=== PATIENT | male | born 1990 | race Hispanic/Latino ===

== ENCOUNTER 2017-09-23 01:35 | Emergency (ER) | payer OTHER ==
[2017-09-23 02:04] VITALS: BMI 26.2
[2017-09-23 02:08] VITALS: RESP 16
[2017-09-23] MEDS ORDERED: Lidocaine 2% w Epi 1:100,000 Inj IJ ONE ×2 (02:18→02:25)
--- NOTE | 2017-09-23 02:27 | ED PDOC ---
HPI: Head Injury Time Seen by Provider: 09/23/17 02:25 Chief Complaint (Nursing): Abnormal Skin Integrity Chief Complaint (Provider): head injury History Per: Patient (26 y/o male here for evaluation of head injury today. Noted to have tripped and fallen today after drinking etoh. Patient denies any pain. Head laceration noted posterior scalp. Tetanus >7 years ago.) Past Medical History Reviewed: Historical Data, Nursing Documentation, Vital Signs Vital Signs: Last Vital Signs Temp 97.4 F L 09/23/17 02:04 Pulse 80 09/23/17 02:04 Resp 16 09/23/17 02:04 BP 117/63 09/23/17 02:04 Pulse Ox 100 09/23/17 02:04 - Family History Family History: States: No Known Family Hx - Allergies Allergies/Adverse Reactions: Allergies Allergy/AdvReac Type Severity Reaction Status Date / Time No Known Allergies Allergy Verified 09/23/17 02:04 Review of Systems ROS Statement: Except As Marked, All Systems Reviewed And Found Negative Neurological: Positive for: Other (head injury) Physical Exam - Reviewed Nursing Documentation Reviewed: Yes Vital Signs Reviewed: Yes - Physical Exam Appears: Positive for: Well, Non-toxic, No Acute Distress Head Exam: Positive for: NORMAL INSPECTION, NORMOCEPHALIC. Negative for: ATRAUMATIC (2.5 cm laceration posterior scalp.) Skin: Positive for: Normal Color, Warm, DRY Eye Exam: Positive for: EOMI, Normal appearance, PERRL ENT: Positive for: Normal ENT Inspection Neck: Positive for: Normal, Painless ROM Cardiovascular/Chest: Positive for: Regular Rate, Rhythm Respiratory: Positive for: CNT, Normal Breath Sounds Gastrointestinal/Abdominal: Positive for: Normal Exam, Bowel Sounds, Soft Back: Positive for: Normal Inspection Extremity: Positive for: Normal ROM Neurologic/Psych: Positive for: Alert, Oriented - ECG O2 Sat by Pulse Oximetry: 100 - Progress ED Course And Treament: Tdap 0.5 ml IM x [address]: nad CT C spine: no acute fx Disposition - Clinical Impression Clinical Impression: Laceration of head - Patient ED Disposition Is Patient to be Admitted: No - Disposition Disposition: Routine/Home Disposition Time: 05:08 Condition: FAIR Additional Instructions: F/U WITH PMD/ED/URGENT IN 7 TO 10 DAYS FOR REMOVAL OF SUTURES Instructions: Head Injury (ED), Staple Care (ED) Forms: [employer] (Hebrew) Procedure: Wound Repair - Time Out Time Out: Site verified - Consent Obtained Consent obtained: Verbal - Performed by Performed by: Mid-level Provider - Indications Indication(s):: Laceration - Location Location:: Scalp Shape:: Linear Dimensions Length cm: 2.0 cm Depth:: Epidermis - Anesthetic Technique Anesthetic Technique: Local Local/Regional Anesthetic:: Lidocaine 2% w/epi - Irrigated Irrigated with ml of normal saline: 150ml - Complexity Complexity:: Simple (one layer) - Wound repair method Sutures:: Technique (four taryn placed in wound) - Patient tolerated procedure Patient Tolerated Procedure:: Well
[2017-09-23 05:16] VITALS: BP 118/72; PULSE 78; TEMP 98.4; O2SAT 98
--- NOTE | 2017-09-23 09:57 | CT ---
PROCEDURE: CT HEAD WITHOUT CONTRAST. HISTORY: head injury/etoh COMPARISON: None available. TECHNIQUE: Axial computed tomography images were obtained through the head/brain without intravenous contrast. Radiation dose: Total exam DLP = 888.89 mGy-cm. This CT exam was performed using one or more of the following dose reduction techniques: Automated exposure control, adjustment of the mA and/or kV according to patient size, and/or use of iterative reconstruction technique. FINDINGS: HEMORRHAGE: No intracranial hemorrhage. BRAIN: No mass effect or edema. No atrophy or chronic microvascular ischemic changes.. There is a tiny (approximately 5 mm x 1.8 mm) elliptical shaped density seen along the anterior aspect of the interhemispheric fissure which is nonspecific though not felt to represent a discrete hemorrhage. The possibility of a small meningioma or possibly dural-based microcalcification not excluded. Follow-up CT scan at interval recommended. VENTRICLES: Unremarkable. No hydrocephalus. CALVARIUM: Unremarkable. There may be some minimal right occipito parietal scalp swelling PARANASAL SINUSES: Unremarkable as visualized. No significant inflammatory changes. MASTOID AIR CELLS: Unremarkable as visualized. No inflammatory changes. OTHER FINDINGS: None. IMPRESSION: No acute intracranial hemorrhage. There is a tiny elliptical shaped density seen along the anterior aspect of the interhemispheric fissure which is nonspecific though not felt to represent a discrete hemorrhage. The possibility of a small meningioma or possibly dural-based microcalcification not excluded. Follow-up CT scan at interval recommended. . Note that this report was placed in PA review folder for followup.
--- NOTE | 2017-09-23 11:31 | CT ---
PROCEDURE: CT Cervical Spine without contrast HISTORY: Injury. COMPARISON: None available. TECHNIQUE: Axial computed tomography images were obtained of the cervical spine without the use of intravenous contrast. Coronal and sagittal reformatted images were created and reviewed. Radiation dose: Total exam DLP = 689.6 MGy-cm. This CT exam was performed using one or more of the following dose reduction techniques: Automated exposure control, adjustment of the mA and/or kV according to patient size, and/or use of iterative reconstruction technique. FINDINGS: VERTEBRAE: The current study reveals no acute compression fractures no retropulsed fragments. Vertebral bodies exhibit normal stature. Vertebral bodies and facets exhibit relatively normal alignment. Facets normally aligned. DISCS/SPINAL CANAL/NEURAL FORAMINA: Disc space heights are relatively maintained. Mild multilevel facet overgrowth. No disc herniation or significant disc bulges. Some minor degenerative changes of the uncovertebral joints left greater than right seen at the C3-C4 level. . The exit foramina also appear mildly narrowed from the C3-C4 through the C6-C7 levels. PARASPINAL SOFT TISSUES: Prevertebral and paraspinal soft tissues unremarkable. OTHER FINDINGS: Minimal mucosal thickening seen in the right chamber sphenoid sinus. Mild biapical pleural thickening. IMPRESSION: No acute fractures. Mild multilevel facet overgrowth with mild bilateral foraminal narrowing C3-C4 through the C6-C7 levels.
== END 2017-09-23 05:16 | disposition home or self-care (01) ==
LOC: H.ER 01:35
DX: S01.01XA Laceration without foreign body of scalp, initial encounter (principal); W01.0XXA Fall on same level from slipping, tripping and stumbling without subsequent striking against object, initial encounter